=== PATIENT | female | born 1995 | race African-American/Black ===

== ENCOUNTER 2017-12-26 12:30 | Outpatient (CLI) | payer OTHER ==
[2017-12-26] VITALS (8 sets, daily range): BP systolic 103–119; BP diastolic 72–88; PULSE 52–63
[~2017-12-26] VITALS: Ht 154.9 cm; Wt 72.4 kg
[~2017-12-26 12:30] MED LIST: PRENATAL; PRENATAL PO
[2017-12-26 14:24] LABS: GLUCOSE,CSF 46 mg/dL (40-70); TOTAL PROTEIN,CSF 21 mg/dL (15-45)
[2017-12-26 15:25] LABS: CSF APPEARANCE CLEAR; CSF COLOR COLORLESS; CSF MONONUCLEAR 0 % (70-100); CSF POLYMORPHONUCLEAR 0 % (0-6); CSF RBC 0 /mm3 (0-0)
== END 2017-12-26 14:52 | disposition home or self-care (01) ==
LOC: COL.RAD 12:30
PROVIDERS: Nurse Practitioner Family
DX: R93.8 Abnormal findings on diagnostic imaging of other specified body structures (principal); R51 Headache